=== PATIENT | male | born 1965 | race African-American/Black ===

== ENCOUNTER 2018-01-04 05:27 | Emergency (ER) | payer SELFPAY ==
[~2018-01-04] VITALS: Ht 172.7 cm; Wt 77.1 kg
[2018-01-04] MEDS ORDERED: ATROPINE SULFATE 1 MG/10 ML DISP.SYRIN IV ONE (05:32)
[2018-01-04] MEDS ORDERED: CALCIUM CHLORIDE 1 GM/10 ML DISP.SYRIN IV ONE (05:32)
[2018-01-04] MEDS ORDERED: EPINEPHRINE 1:10,000 1 MG/10 ML DISP.SYRIN MC ONE (05:32)
[2018-01-04] MEDS ORDERED: SODIUM BICARBONATE 8.4% 50 MEQ/50 ML DISP.SYRIN IV ONE (05:32)
[2018-01-04] MEDS ORDERED: AMIODARONE HCL 150 MG/3 ML VIAL IV ONE (05:32)
--- NOTE | 2018-01-04 05:35 | NUR ---
PT BIBA WITHOUT RESPIRATIONS OR HEART RATE. ACLS BEGAN IMMEDIATELY. Addendum: 01/04/18 at 0714 by BRIDGETTALLOWAY PLEASE SEE CODE BLUE PAPER RECORD FOR DETAILS
--- NOTE | 2018-01-04 05:36 | NUR ---
EKG NOT DONE. CHEST COMPRESSIONS CONTINUED.
--- NOTE | 2018-01-04 05:45 | NUR ---
EKG D/C'ed by Dr Taylor
[2018-01-04 06:05] LABS: BASOPHILS # (AUTO) 0.1 K/uL (0.0-8.0); BASOPHILS % (AUTO) 0.8 % (0.0-2.0); HEMATOCRIT 44.8 % (36.7-47.1); HEMOGLOBIN 13.8 g/dL (12.5-16.3); LYMPHOCYTES # (AUTO) 1.2 K/uL (20.0-40.0); LYMPHOCYTES % (AUTO) 9.2 % (20.5-51.5); MEAN CORPUSCULAR HEMOGLOBIN 23.7 uug (23.8-33.4); MEAN CORPUSCULAR HGB CONC 31 g/dL (32.5-36.3); MONOCYTES # (AUTO) 0.5 K/uL (2.0-10.0); MONOCYTES % (AUTO) 3.8 % (0.0-11.0); NEUTROPHILS # (AUTO) 11.1 K/uL (1.8-8.9); NEUTROPHILS % (AUTO) 86.2 % (38.5-71.5); PLATELET COUNT (AUTO) 179 K/uL (152-348); RED BLOOD CELL COUNT(AUTO) 5.82 MIL/uL (4.06-5.63); WHITE BLOOD COUNT (AUTO) 12.9 K/uL (3.6-10.2)
[2018-01-04 06:17] LABS: CREATININE 4.1 mg/dL (0.6-1.3)
[2018-01-04 06:23] LABS: POTASSIUM 6.8 mmol/L (3.5-5.1)
[2018-01-04 06:28] LABS: *AMPHETAMINE, URINE POSITIVE (NEGATIVE); *BARBITURATE, URINE NEGATIVE (NEGATIVE); *BLOOD, URINE Trace-lysed (NEGATIVE); *CANNABINOID, URINE NEGATIVE (NEGATIVE); *CLARITY,URINE CLOUDY (CLEAR); *COCCAINE, URINE POSITIVE (NEGATIVE); *COLOR,URINE YELLOW (YELLOW); *KETONES,URINE TRACE (NEGATIVE); *OPIATE, URINE NEGATIVE (NEGATIVE); *PHENCYCLIDINE SCREEN,URINE NEGATIVE (NEGATIVE); *PROTEIN,URINE 1+ (NEGATIVE); *UROBILINOGEN,URINE 0.2 E.U./dl (NORMAL); LEUKOCYTE ESTERASE ,URINE NEGATIVE (NEGATIVE); NITRITE, URINE NEGATIVE (NEGATIVE); PH,URINE 5.5 (5.0-8.0); UGLUCOSE NEGATIVE (NEGATIVE)
[2018-01-04 06:29] LABS: *BILIRUBIN,URIN 1+ (NEGATIVE)
[2018-01-04 06:34] LABS: WBC,URINE 0-3 /HPF (0-3)
[2018-01-04 06:35] LABS: BACTERIA,URINE MOD /HPF (NONE SEEN); SQUAMOUS EPITHELIAL CELL,UR FEW /HPF (NONE SEEN)
--- NOTE | 2018-01-04 06:35 | NUR ---
CALL PLACED TO [facility]--SPOKE Piyush CHOWDHURY. CASE # [id number]
[2018-01-04 06:36] LABS: CALCIUM OXALATE CRYSTALS,UR FEW /HPF (NONE SEEN); MUCUS,URINE MANY /LPF (0-FEW); URINE AMORPHOUS URATE MANY /HPF
[2018-01-04 06:39] LABS: BILIRUBIN,DIRECT 0.2 mg/dL (0.0-0.2); BILIRUBIN,TOTAL 0.6 mg/dL (0.2-1.0); TOTAL PROTEIN, SERUM 8.8 g/dL (6.4-8.2)
--- NOTE | 2018-01-04 06:40 | NUR ---
[facility] Ivan [phone]. Case #[id number]
--- NOTE | 2018-01-04 07:18 | NUR ---
BODY ESCORTED TO [facility] BY SERENITY CRUZ AND [facility]
--- NOTE | 2018-01-05 06:55 | NUR ---
nursing: Staff was able to locate information from [facility] [employer]. was contacted and a voicemail under Shadi Miles was full. Emergency contact in case of emergency : Michael Chavez [phone] was reached, a female answered and said "NO!" and was disconnected. Will continue to locate next of kin.
== END 2018-01-04 07:18 | disposition expired ==
LOC: ER 05:31
DX: I46.9 Cardiac arrest, cause unspecified (principal); E87.5 Hyperkalemia; E87.0 Hyperosmolality and hypernatremia; F14.10 Cocaine abuse, uncomplicated; F15.10 Other stimulant abuse, uncomplicated; N19 Unspecified kidney failure
CPT/HCPCS: 31500; 36415; 80048; 80076; 80307; 81001; 84484; 85025; 85730; 92950; 99285; A4663; G0480; J0171; J0282; J0461; J3490 ×2; 70030-TC